=== PATIENT | female | born 1945 | race Caucasian/White ===

== ENCOUNTER → 2020-10-14 12:05 | Outpatient (CLI) | payer MEDICARE, SELFPAY ==
[2020-10-15 11:14] LABS: Covid-19 Nasal PCR Sendout P&C NEGATIVE
== END ==
PROVIDERS: PCP Family Medicine; Visit Provider Family Medicine
DX: Z11.52 Encounter for screening for COVID-19 (principal)
CPT/HCPCS: U0004